=== PATIENT | male | born 2000 | race Caucasian/White ===

== ENCOUNTER 2021-02-24 13:00 | Emergency (ER) | payer OTHER ==
--- NOTE | 2021-02-24 13:40 | ER ---
Nurse's Notes [facility] Name: Noman Abdalla Age: 20 yrs Sex: Male : 2000 Arrival Date: 02/24/2021 Time: 13:00 Bed 10 Private MD: Diagnosis: Unspecified otitis externa, right ear Presentation: 02/24 13:21 Chief complaint: Patient states: Right ear pain x1 week, states 'it feels swollen'. vg1 Denies sore throat or cough. States the 'the pain can get bad to were I cant sleep'. Coronavirus screen: Vaccine status: Patient reports being unvaccinated. Client denies travel out of the [place] in the last 14 days. Ebola Screen: Patient negative for fever greater than or equal to 101.5 degrees Fahrenheit, and additional compatible Ebola Virus Disease symptoms. Initial Sepsis Screen: Does the patient meet any 2 criteria? No. Patient's initial sepsis screen is negative. Does the patient have a suspected source of infection? No. Patient's initial sepsis screen is negative. Risk Assessment: Do you want to hurt yourself or someone else? Patient reports no desire to harm self or others. Onset of symptoms was February 17, 2021. 13:21 Method Of Arrival: Ambulatory 1 13:21 Acuity: FREDA 4 vg1 Triage Assessment: 13:25 General: Appears in no apparent distress. comfortable, Behavior is calm, cooperative. vg1 Pain: Complains of pain in right ear Pain currently is 5 out of 10 on a pain scale. at worst was 9 out of 10 on a pain scale. Pain began x 1 week. EENT: Denies ringing nasal congestion. Historical: - Allergies: 13:25 No Known Allergies; vg1 - Home Meds: 13:25 None [Active]; vg1 - PMHx: 13:25 None; vg1 - PSHx: 13:25 None; vg1 - Immunization history:: Client reports having NOT received the Covid vaccine. - Social history:: Smoking status: Patient denies any tobacco usage or history of. Screenin:00 Abuse screen: Denies threats or abuse. Denies injuries from another. Nutritional iw screening: No deficits noted. Tuberculosis screening: No symptoms or risk factors identified. Fall Risk None identified. Assessment: 13:45 General: Appears in no apparent distress. Behavior is calm, cooperative. Neuro: Level iw of Consciousness is awake, alert, obeys commands, Oriented to person, place, time, situation, Moves all extremities. Full function. Cardiovascular: Patient's skin is warm and dry. Respiratory: Respiratory effort is even, unlabored, Respiratory pattern is regular, symmetrical. EENT: Reports pain in right ear. Derm: Skin is intact, is healthy with good turgor. Musculoskeletal: Range of motion: intact in all extremities. Vital Signs: 13:21 BP 101 / 57; Pulse 65; Resp 14; Temp 98.3; Pulse Ox 100% ; Weight 68.04 kg; Height 5 vg1 ft. 10 in. (177.80 cm); Pain 9/10; 13:21 Body Mass Index 21.52 (68.04 kg, 177.80 cm) vg1 ED Course: 13:00 Patient arrived in ED. as 13:14 [facility] pm1 13:14 Nancy Sahu MD is Attending Physician. pm1 13:24 Triage completed. vg1 13:25 Arm band placed on. vg1 13:45 Patient has correct armband on for positive identification. iw 14:03 Christi Butts, RN is Primary Nurse. iw 14:07 No provider procedures requiring assistance completed. Patient did not have IV access iw during this emergency room visit. Administered Medications: 13:25 CANCELLED (Physician Discretion): Ibuprofen 600 mg PO once pm1 Outcome: 13:39 Discharge ordered by . pm1 14:07 Discharged to home ambulatory. iw 14:07 Condition: good 14:07 Discharge instructions given to patient, Instructed on discharge instructions, follow up and referral plans. medication usage, Demonstrated understanding of instructions, follow-up care, medications, Prescriptions given X 2. 14:08 Patient left the ED. iw Signatures: Dasia Pierson as Christi Butts, SABINO RN iw Eugene Huynh NP [employer] INSTALLER pm1 Sunin Cronin RN RN vg1
--- NOTE | 2021-02-24 13:40 | EDPHYS ---
Physician Documentation [facility] Name: Noman Abdalla Age: 20 yrs Sex: Male : 2000 Arrival Date: 02/24/2021 Time: 13:00 Bed 10 Private MD: ED Physician Nancy Sahu HPI: 02/24 13:38 This 20 yrs old Male presents to ER via Ambulatory with complaints of Ear Pain. pm1 13:38 The patient presents with pain. The complaints affect the right ear. Onset: The pm1 symptoms/episode began/occurred 1 week(s) ago. Modifying factors: The symptoms are alleviated by nothing, the symptoms are aggravated by nothing. Associated signs and symptoms: Pertinent negatives: fever. Severity of symptoms: in the emergency department the symptoms are worse. The patient has not experienced similar symptoms in the past. The patient has not recently seen a physician. Historical: - Allergies: 13:25 No Known Allergies; vg1 - Home Meds: 13:25 None [Active]; vg1 - PMHx: 13:25 None; vg1 - PSHx: 13:25 None; vg1 - Immunization history:: Client reports having NOT received the Covid vaccine. - Social history:: Smoking status: Patient denies any tobacco usage or history of. ROS: 13:38 Constitutional: Negative for fever, chills, and weight loss. pm1 13:38 Cardiovascular: Negative for chest pain, palpitations, and edema, Respiratory: Negative for shortness of breath, cough, wheezing, and pleuritic chest pain, MS/Extremity: Negative for injury and deformity, Skin: Negative for injury, rash, and discoloration, Neuro: Negative for headache, weakness, numbness, tingling, and seizure. 13:38 ENT: Positive for ear pain, Negative for drainage from ear(s), sore throat. 13:38 All other systems are negative. Exam: 13:38 Constitutional: This is a well developed, well nourished patient who is awake, alert, pm1 and in no acute distress. Head/Face: Normocephalic, atraumatic. 13:38 Skin: Warm, dry with normal turgor. Normal color with no rashes, no lesions, and no evidence of cellulitis. MS/ Extremity: Pulses equal, no cyanosis. Neurovascular intact. Full, normal range of motion. 13:38 Eyes: Exam is negative for acute changes, Extraocular movements: no acute changes, Conjunctiva: no acute changes, no injection. 13:38 ENT: Exam is negative for acute changes, External ear(s): no acute changes, Ear canal(s): swelling, that is moderate, of the right canal, TM's: not visable, swelling to right ear. 13:38 Neck: Exam negative for 13:38 Cardiovascular: Exam negative for acute changes, Rate: normal, Rhythm: regular, Pulses: no pulse deficits are appreciated. 13:38 Respiratory: Exam negative for acute changes, respiratory distress, shortness of breath. 13:38 Neuro: Exam negative for acute changes, Orientation: is normal, Mentation: is normal, Motor: is normal, moves all fours. Vital Signs: 13:21 BP 101 / 57; Pulse 65; Resp 14; Temp 98.3; Pulse Ox 100% ; Weight 68.04 kg; Height 5 vg1 ft. 10 in. (177.80 cm); Pain 9/10; 13:21 Body Mass Index 21.52 (68.04 kg, 177.80 cm) vg1 MDM: 13:38 Patient medically screened. pm1 13:38 Data reviewed: vital signs. Data interpreted: Pulse oximetry: on room air is 100 %. pm1 Interpretation: normal. Counseling: I had a detailed discussion with the patient and/or guardian regarding: the historical points, exam findings, and any diagnostic results supporting the discharge/admit diagnosis, the need for outpatient follow up, for definitive care, an ENT specialist, a family practitioner, to return to the emergency department if symptoms worsen or persist or if there are any questions or concerns that arise at home. 13:38 ED course: Patient given oral antibiotics because unable to visualize TM to affected pm1 ear with otitis externa. Administered Medications: 13:25 CANCELLED (Physician Discretion): Ibuprofen 600 mg PO once pm1 Disposition: 18:11 Co-signature as Attending Physician, Nancy Sahu MD. PA/HISTORY TEACHER's history reviewed, ma2 patient interviewed, and examined. I agree with assessment and care plan and confirm the diagnosis (es) above. Disposition Summary: 02/24/21 13:39 Discharge Ordered Location: Home pm1 Problem: new pm1 Symptoms: have improved pm1 Condition: Stable pm1 Diagnosis - Unspecified otitis externa, right ear pm1 Followup: pm1 - With: Emergency Department - When: As needed - Reason: Worsening of condition Followup: pm1 - With: Private Physician - When: 2 - 3 days - Reason: Recheck today's complaints, Continuance of care, Re-evaluation by your physician Discharge Instructions: - Discharge Summary Sheet pm1 - Ear Drops, Adult pm1 - Otitis Externa pm1 Forms: - Medication Reconciliation Form pm1 - Thank You Letter pm1 - Antibiotic Education pm1 - Prescription Opioid Use pm1 Prescriptions: - Hydrocortisone/neomycin/polymyxin otic 10mg (1%) / 3.5mg (0.35%) / [id number] / 10mL - instill 4 drop by OTIC route every 6 hours for 10 days; 10 milliliter; Refills: pm1 0, Product Selection Permitted - Amoxicillin 500 mg Oral Capsule - take 1 capsule by ORAL route every 8 hours for 10 days; 30 tablet; Refills: 0, pm1 Product Selection Permitted Signatures: Eugene Huynh, PETER HISTORY TEACHER pm1 Nancy Sahu MD MD ma2 Sunni Cronin, RN RN vg1 Corrections: (The following items were deleted from the chart) 13:25 13:15 Ibuprofen 600 mg PO once ordered. pm1 pm1
[2021-02-24 14:16] VITALS: BP 101/57; TEMP 98.3; O2SAT 100
== END 2021-02-24 14:08 | disposition home or self-care (01) ==
LOC: ER 13:00
DX: H60.91 Unspecified otitis externa, right ear (principal)
CPT/HCPCS: 99282

== ENCOUNTER 2021-10-21 20:18 | Emergency (ER) | payer OTHER ==
[2021-10-21] MEDS ORDERED: NA CHLORIDE 0.9% 1,000 ML ONE (21:12)
[2021-10-21] MEDS ORDERED: KETOROLAC 30 MG/ML INJ ONE (21:12)
[2021-10-21] MEDS ORDERED: ONDANSETRON 4 MG/2 ML VIAL ONE (21:12)
[2021-10-21 21:29] LABS: Albumin 4.7 g/dL (3.4-5.0); Bilirubin Total 1.1 mg/dL (0.2-1.0); Magnesium 1.9 mg/dL (1.8-2.4); Potassium 3.8 mmol/L (3.5-5.1); Protein, Total 8.1 g/dL (6.4-8.2)
[2021-10-21 21:53] LABS: Absolute Lymphocytes (CBC) 0.7 K/uL (0.7-4.9); Hematocrit 44.8 % (39.6-49.0); Lymphocytes % 3.7 % (15.3-44.8); MPV 7.5 fL (7.6-11.3); RBC Red Blood Cell Count 4.92 M/uL (4.33-5.43)
[2021-10-21 22:29] LABS: Urine Blood Negative (Negative); Urine Glucose Negative (Negative); Urine Protein Negative (Negative)
[2021-10-21 22:44] LABS: Blood Morphology Comment NOT SEEN (NOT SEEN); Platelet Estimate ADEQ
[2021-10-21 22:48] LABS: Barbiturates NEGATIVE (NEGATIVE); Benzodiazepines NEGATIVE (NEGATIVE); Cocaine NEGATIVE (NEGATIVE); METHAMPHETAM NEGATIVE (NEGATIVE); Methadone NEGATIVE (NEGATIVE); Opiates NEGATIVE (NEGATIVE); Phencyclidine NEGATIVE (NEGATIVE); THC Cannibis NEGATIVE (NEGATIVE)
--- NOTE | 2021-10-21 23:15 | EDPHYS ---
Physician Documentation [facility] Name: Noman Abdalla Age: 20 yrs Sex: Male : 2000 Arrival Date: 10/21/2021 Time: 20:21 Bed 16 Private MD: ED Physician Sharon Elmore HPI: 10/21 20:34 This 20 yrs old Male presents to ER via Unassigned with complaints of Vomiting, Fever. sd2 20:34 20-year-old male presents with chief complaint of abdominal pain, nausea and vomiting sd2 starting earlier this morning. Mother at bedside provides history and reports the patient started with generalized abdominal pain this morning and then started vomiting a few hours ago and has not been able to keep anything down since then. They have tried taking Gas-X and Colace at home with no relief. The patient has not had any diarrhea. They deny any known fevers or recent sick contacts. The patient has had chills but denies any fever. Denies any new food exposures that might have caused his symptoms. Patient denies any drug use. Denies any other acute complaints at this time.. Historical: - Allergies: 20:34 No Known Allergies; ld1 - Home Meds: 20:34 None [Active]; ld1 - PMHx: 20:34 None; ld1 - PSHx: 20:34 None; ld1 - Immunization history:: Adult Immunizations up to date. - Social history:: Smoking status: Patient denies any tobacco usage or history of. Patient/guardian denies using alcohol, street drugs. ROS: 20:34 Constitutional: Negative for fever and weight loss. Positive for chills. Eyes: Negative sd2 for injury, pain, redness, and discharge, Cardiovascular: Negative for chest pain, palpitations, and edema, Respiratory: Negative for shortness of breath, cough, wheezing. MS/Extremity: Negative for injury and deformity, Skin: Negative for injury, rash, and discoloration, Neuro: Negative for headache, numbness and tingling. 20:34 Abdomen/GI: Positive for abdominal pain, nausea and vomiting, Negative for diarrhea. Exam: 20:34 Constitutional: This is a well developed, well nourished patient who is awake, alert, sd2 and in no acute distress. Head/Face: Normocephalic, atraumatic. Eyes: EOMI, normal conjunctiva bilaterally Chest/axilla: Normal chest wall appearance and motion. Nontender with no deformity. Cardiovascular: Regular rate and rhythm with a normal S1 and S2. No gallops, murmurs, or rubs. 2+ distal pulses. Respiratory: Lungs have equal breath sounds bilaterally, clear to auscultation and percussion. No rales, rhonchi or wheezes noted. No increased work of breathing, no retractions or nasal flaring. Abdomen/GI: Soft, non-tender, with normal bowel sounds. No guarding or rebound. No evidence of tenderness throughout. Skin: Warm, dry with normal turgor. Normal color with no rashes, no lesions, and no evidence of cellulitis. MS/ Extremity: Pulses equal, no cyanosis. Neurovascular intact. Full, normal range of motion. Ambulatory without difficulty. Psych: Awake, alert, with orientation to person, place and time. Behavior, mood, and affect are within normal limits. Vital Signs: 20:33 BP 123 / 45; Pulse 80; Resp 18; Temp 97.4(O); Pulse Ox 100% on R/A; Weight 74.84 kg; ld1 Height 5 ft. 10 in. (177.80 cm); Pain 7/10; 21:45 BP 115 / 51; Pulse 69; Resp 14; Pulse Ox 100% on R/A; jb4 22:45 BP 111 / 52; Pulse 70; Resp 16; Pulse Ox 100% on R/A; jb4 20:33 Body Mass Index 23.67 (74.84 kg, 177.80 cm) ld1 MDM: 20:29 Patient medically screened. sd2 20:34 Differential diagnosis: Gastritis, ACS, pancreatitis, GB pathology, diverticulitis, sd2 SBO, UTI, appendicitis among others. Data reviewed: vital signs, nurses notes. 23:11 Data reviewed: lab test result(s). Counseling: I had a detailed discussion with the sd2 patient and/or guardian regarding: the historical points, exam findings, and any diagnostic results supporting the discharge/admit diagnosis, lab results, the need for outpatient follow up, to return to the emergency department if symptoms worsen or persist or if there are any questions or concerns that arise at home. Medical screen evaluation completed. EMTALA emergency medical condition absent. Medication response: Dollyfrsamuel relieved the patient's nausea. ED course: Labs reviewed. Leukocytosis present but hemoconcentration present on CBC and patient very dry hemodynamically but stable with urine with 4+ ketones. Labs otherwise grossly WNCL. Pt feeling much improved after Toradol and Zofran and tolerating PO in room with benign abdominal exam. Pt advises that this occurs every other month normally but typically resolves on its own and he has not followed up with his PCP yet. Advised PCP follow up and possible need for GI in the future. Will dc with Rudy and Danyell. Pt verbalizes understanding of discharge plan and strict return precautions.. 10/21 20:34 Order name: CBC with Diff; Complete Time: 23:05 sd2 10/21 20:34 Order name: CMP; Complete Time: 21:49 sd2 10/21 20:34 Order name: Lipase; Complete Time: 21:49 sd2 10/21 20:34 Order name: Magnesium; Complete Time: 21:49 sd2 10/21 20:34 Order name: Urine Drug Screen; Complete Time: 23:05 sd2 10/21 20:34 Order name: Urine Microscopic Only; Complete Time: 23:32 sd2 10/21 20:34 Order name: Urine Dipstick-Ancillary (obtain specimen); Complete Time: 22:55 sd2 10/21 22:12 Order name: Manual Differential; Complete Time: 23:05 EDMS 10/21 22:30 Order name: Urine Dipstick-Ancillary; Complete Time: 22:40 EDMS Administered Medications: 21:14 Drug: NS 0.9% 1000 ml Route: IV; Rate: 1 bolus; Site: left antecubital; jb4 21:14 Drug: Ketorolac 15 mg Route: IVP; Site: left antecubital; jb4 21:15 Drug: Zofran (Ondansetron) 4 mg Route: IVP; Site: left antecubital; jb4 Disposition Summary: 10/21/21 23:14 Discharge Ordered Location: Home sd2 Problem: new sd2 Symptoms: have improved sd2 Condition: Stable sd2 Diagnosis - Nausea and vomiting sd2 - Abdominal cramping sd2 Followup: sd2 - With: Private Physician - When: 2 - 3 days - Reason: Recheck today's complaints, Continuance of care, Re-evaluation by your physician Followup: sd2 - With: Emergency Department - When: As needed - Reason: Discharge Instructions: - Discharge Summary Sheet sd2 - Abdominal Pain, Adult sd2 - Nausea and Vomiting, Adult sd2 Forms: - Medication Reconciliation Form sd2 - Thank You Letter sd2 - Antibiotic Education sd2 - Prescription Opioid Use sd2 Prescriptions: - dicyclomine 20 mg Oral Tablet - take 1 tablet by ORAL route 3 times per day Take every 8 hours as needed for sd2 abdominal cramping.; 15 tablet; Refills: 0, Product Selection Permitted - ondansetron 8 mg Oral tablet,disintegrating - take 1 tablet by ORAL route every 8 hours; 15 tablet; Refills: 0, Product sd2 Selection Permitted Signatures: Dispatcher [employer] EDJordan Esquivel RN RN jb4 Debbie Hill RN RN ld1 Lauren Curry PA PA sb3 Sharon Elmore MD MD sd2 Corrections: (The following items were deleted from the chart) 20:35 20:34 Social history: Smoking status: Patient denies any tobacco usage or history of. ld1 Patient/guardian denies using alcohol, ld1
--- NOTE | 2021-10-21 23:15 | ER ---
Nurse's Notes [facility] Name: Noman Abdalla Age: 20 yrs Sex: Male : 2000 Arrival Date: 10/21/2021 Time: 20:21 Bed 16 Private MD: Diagnosis: Nausea and vomiting;Abdominal cramping Presentation: 10/21 20:33 Chief complaint: Patient states: vomiting since 2 hours ago, nausea and abd cramps for ld1 past 12 hours. Coronavirus screen: Vaccine status: Patient reports being unvaccinated. Ebola Screen: No symptoms or risks identified at this time. Initial Sepsis Screen: Does the patient meet any 2 criteria? No. Patient's initial sepsis screen is negative. Does the patient have a suspected source of infection? No. Patient's initial sepsis screen is negative. Risk Assessment: Do you want to hurt yourself or someone else? Patient reports no desire to harm self or others. Onset of symptoms was October 21, 2021. 20:33 Method Of Arrival: Ambulatory ld1 20:33 Acuity: FREDA 3 ld1 Triage Assessment: 20:34 General: Appears distressed, uncomfortable, Behavior is cooperative, appropriate for ld1 age, agitated. Pain: Complains of pain in abdomen Pain does not radiate. Pain currently is 7 out of 10 on a pain scale. Quality of pain is described as crampy, Pain began 1 day ago. Is continuous, Alleviated by nothing. Aggravated by eating, drinking. Neuro: Level of Consciousness is awake, alert, obeys commands, Oriented to person, place, time, situation. Cardiovascular: Capillary refill < 3 seconds Patient's skin is warm and dry. Respiratory: Airway is patent Respiratory effort is even, unlabored. GI: Abdomen is flat, non-distended, Reports lower abdominal pain, upper abdominal pain, cramping, intolerance of fluids, intolerance of food, nausea, normal bowel habits, vomiting. 20:34 : Reports slow stream while voiding. ld1 Historical: - Allergies: 20:34 No Known Allergies; ld1 - Home Meds: 20:34 None [Active]; ld1 - PMHx: 20:34 None; ld1 - PSHx: 20:34 None; ld1 - Immunization history:: Adult Immunizations up to date. - Social history:: Smoking status: Patient denies any tobacco usage or history of. Patient/guardian denies using alcohol, street drugs. Assessment: 20:45 General: Appears in no apparent distress. uncomfortable, Behavior is calm, cooperative, jb4 appropriate for age. Pain: Complains of pain in right lower quadrant and left lower quadrant Pain radiates to low back area Pain currently is 10 out of 10 on a pain scale. Neuro: Level of Consciousness is awake, alert, obeys commands, Oriented to person, place, time, situation. Cardiovascular: Patient's skin is warm and dry. Respiratory: Airway is patent Respiratory effort is even, unlabored, Respiratory pattern is regular, symmetrical. GI: Abdomen is flat, Bowel sounds present X 4 quads. Abd is soft and non tender X 4 quads. Reports lower abdominal pain, constipation, nausea, vomiting. Derm: Skin is intact, Skin is pink, warm \T\ dry. Musculoskeletal: Circulation, motion, and sensation intact. Range of motion: intact in all extremities. 21:37 Reassessment: Patient appears in no apparent distress at this time. Patient and/or jb4 family updated on plan of care and expected duration. Pain level reassessed. Patient is alert, oriented x 3, equal unlabored respirations, skin warm/dry/pink. Pt reports feeling better and is able to relax. 22:54 Reassessment: Patient appears in no apparent distress at this time. Patient and/or jb4 family updated on plan of care and expected duration. Pain level reassessed. Patient is alert, oriented x 3, equal unlabored respirations, skin warm/dry/pink. Vital Signs: 20:33 BP 123 / 45; Pulse 80; Resp 18; Temp 97.4(O); Pulse Ox 100% on R/A; Weight 74.84 kg; ld1 Height 5 ft. 10 in. (177.80 cm); Pain 7/10; 21:45 BP 115 / 51; Pulse 69; Resp 14; Pulse Ox 100% on R/A; jb4 22:45 BP 111 / 52; Pulse 70; Resp 16; Pulse Ox 100% on R/A; jb4 20:33 Body Mass Index 23.67 (74.84 kg, 177.80 cm) ld1 ED Course: 20:21 Patient arrived in ED. jj6 20:29 Sharon Elmore MD is Attending Physician. sd2 20:34 Triage completed. ld1 20:34 Arm band placed on right wrist. ld1 20:55 Initial lab(s) drawn, by me, sent to lab. Inserted saline lock: 20 gauge in left jb4 antecubital area, using aseptic technique. Blood collected. Missed attempt(s): 20 gauge in left forearm. Bleeding controlled, band aid applied, catheter tip intact. 20:56 Jordan Cha, RN is Primary Nurse. jb4 23:45 IV discontinued, intact, bleeding controlled, No redness/swelling at site. jb4 Administered Medications: 21:14 Drug: NS 0.9% 1000 ml Route: IV; Rate: 1 bolus; Site: left antecubital; jb4 21:14 Drug: Ketorolac 15 mg Route: IVP; Site: left antecubital; jb4 21:15 Drug: Zofran (Ondansetron) 4 mg Route: IVP; Site: left antecubital; jb4 Outcome: 23:14 Discharge ordered by . sd2 23:45 Discharged to home ambulatory, with family. jb4 23:45 Condition: stable 23:45 Discharge instructions given to patient, family, Instructed on discharge instructions, follow up and referral plans. medication usage, Demonstrated understanding of instructions, follow-up care, medications, Prescriptions given X 2. 23:46 Patient left the ED. jb4 Signatures: Jordan Cha RN RN jb4 Debbie Hill RN RN ld1 Malinda Meza jj6 Sharon Elmore MD MD sd2 Corrections: (The following items were deleted from the chart) 20:35 20:34 Social history: Smoking status: Patient denies any tobacco usage or history of. ld1 Patient/guardian denies using alcohol, ld1 20:37 20:34 GI: Abdomen is flat, non-distended, Reports lower abdominal pain, upper abdominal ld1 pain, cramping, intolerance of fluids, intolerance of food, nausea, normal bowel habits, vomiting, ld1 20:42 20:33 BP 123 / 45; Pulse 80bpm; Resp 18bpm; Pulse Ox 100% RA; Temp 97.4F Oral; Pain ld1 7/10; ld1
[2021-10-21 23:30] LABS: Urine Mucus 1+ /HPF (None Seen)
[2021-10-21 23:31] LABS: Urine Bacteria <20 /HPF (<20); Urine RBC <5 /HPF (None Seen)
[2021-10-22 04:12] VITALS: TEMP 97.4; O2SAT 100
[2021-10-22 04:30] VITALS: BP 111/52
== END 2021-10-21 23:46 | disposition home or self-care (01) ==
LOC: ER 20:18
DX: R11.2 Nausea with vomiting, unspecified (principal); R10.9 Unspecified abdominal pain
CPT/HCPCS: 85025; 36415; 83735; 83690; 80053; 80307; J7030; J2405; 81003; 81015; 96374; 96375; 99284